=== PATIENT | male | born 1950 | race Hispanic/Latino ===

== ENCOUNTER → 2017-08-11 | Outpatient (CLI) | payer MEDICARE ==
[~2017-08-11] MED LIST: LISINOPRIL-HCT1 EAC4 PO; WARFARIN SODIUM2 MG PO; Z.0.CLINDAMYCIN HC30 PO; Z.0.FLOMAX0.4 MG PO; Z.0.LIPITOR20 MG PO; Z.0.PLAVIX75 MG PO
--- NOTE | 2017-08-11 09:26 | Diagnostic Imaging Report ---
PROCEDURE:ABDOMINAL ULTRASOUND COMPARISON:None. INDICATIONS:RLQ Pain Technique: Grayscale color Doppler ultrasound FINDINGS: Imaged segments of the inferior vena cava and abdominal aorta are normal. Normal pancreas. Right liver span 17 cm. Mildly increased echogenicity with a slightly nodular margin. Portal vein diameter 1.3 cm; normal flow direction. Cholecystectomy. Common bile duct diameter 0.7 cm. Right kidney: Span 10.6 cm. Anechoic 2.2 x 1.5 x 2 cm mid simple cyst, with an adjacent 9 mm cyst. Otherwise, normal Left kidney: Span 12 cm. Hypoechoic 8mm nodule at the mid segment too small to characterize. Spleen length 11.2 cm. CONCLUSION: 1. Hepatomegaly with increased echogenicity most commonly secondary to steatosis. 2. Portal vein prominence with a slightly nodular liver margin suggesting developing portal hypertension and cirrhosis. 3. Simple right renal cyst. Dictated by: Daren Aguilera M.D. on 08/11/2017 at 9:26 Electronically approved by: Daren gAuilera M.D. on 08/11/2017 at 9:26
--- NOTE | 2017-08-11 10:13 | Diagnostic Imaging Report ---
PROCEDURE:PELVIC ULTRASOUND COMPARISON:None. INDICATIONS:RLQ Pain TECHNIQUE: Paula scale color Doppler ultrasound pelvis with pre-and post void bladder volume. FINDINGS: The urinary bladder and pelvis are unremarkable. Bilateral ureteral jets consistent with patency. Bladder volume: 92 mL Post void bladder volume: 12 mL The prostate is inconspicuous. CONCLUSION: Unremarkable pelvic ultrasound. Dictated by: Daren Aguilera M.D. on 08/11/2017 at 10:13 Electronically approved by: Daren Aguilera M.D. on 08/11/2017 at 10:13
== END ==
LOC: US 07:53
PROVIDERS: ATTEND Family Medicine
DX: R10.31 Right lower quadrant pain (principal)
CPT/HCPCS: 76700; 76856

== ENCOUNTER → 2018-04-18 | Outpatient (CLI) | payer MEDICARE ==
--- NOTE | 2018-04-18 10:42 | Diagnostic Imaging Report ---
PROCEDURE:X-RAY LEFT KNEE, THREE OR MORE VIEWS COMPARISON:None. INDICATIONS:PAIN FINDINGS: The bones are demineralized. There are no fractures, subluxations, lytic or blastic lesions. Diffuse cartilage calcification is compatible with chondrocalcinosis. Mild medial compartment narrowing. There is no evidence of a joint effusion. There is also vascular calcification. CONCLUSION: Mild medial compartment narrowing with diffuse chondrocalcinosis. Yuniel Dickson D.O. Dictated by: Yuniel Dickson D.O. on 04/18/2018 at 10:52 Electronically approved by: Yuniel Dickson D.O. on 04/18/2018 at 10:52
--- NOTE | 2018-04-18 10:46 | Diagnostic Imaging Report ---
PROCEDURE:X-RAY RIGHT KNEE, THREE OR MORE VIEWS COMPARISON:None. INDICATIONS:PAIN FINDINGS:The bones are demineralized. No fracture, dislocation lytic or blastic process identified. Cartilage calcification compatible with chondrocalcinosis. Medial compartment narrowing is moderate. There is vascular calcification and clips above the popliteal fossa. CONCLUSION: Medial compartment narrowing with diffuse chondrocalcinosis. Yuniel Dickson D.O. Dictated by: Yuniel Dickson D.O. on 04/18/2018 at 10:55 Electronically approved by: Yuniel Dickson D.O. on 04/18/2018 at 10:55
== END ==
LOC: RAD 07:59
PROVIDERS: ATTEND Family Medicine
DX: M17.0 Bilateral primary osteoarthritis of knee (principal)

== ENCOUNTER → 2018-05-15 | Outpatient (CLI) | payer MEDICARE ==
--- NOTE | 2018-05-15 11:19 | Diagnostic Imaging Report ---
RIGHT HIP - 2 IMAGES HISTORY: Posterior right hip pain COMPARISON: None available. FINDINGS: Soft tissue attenuation partially limits sensitivity of the exam. Bones: Some of the osseous structures are partially obscured by stool and overlying bowel gas. No aggressive osseous lesion. Joints: Mild degenerative changes of the right hip and right sacroiliac joint. Soft tissues: Diffuse scattered atherosclerotic vascular calcifications. Metallic surgical clips project at the right inguinal region. IMPRESSION: 1. No acute radiographic abnormality. 2. Mild osteoarthrosis. Signed by: Dr. Logan Klein D.O., M.M.M. on 05/15/2018 11:15 AM
== END ==
LOC: RAD 09:47
PROVIDERS: ATTEND Family Medicine
DX: M13.0 Polyarthritis, unspecified (principal)

== ENCOUNTER → 2020-04-29 | Outpatient (CLI) | payer MEDICARE | LOC: CARD 09:13 | PROVIDERS: ATTEND Family Medicine | DX: I73.9 Peripheral vascular disease, unspecified (principal) | CPT/HCPCS: 93925 ==

== ENCOUNTER → 2020-08-22 | Outpatient (CLI) | payer MEDICARE ==
[~2020-08-22] MED LIST changes: +IOPAMIDOL 370 MG/ML 200 ML INFUS..BTL INJ ONE; +SODIUM CHLORIDE 0.9% 100 ML ONE; +SODIUM CHLORIDE 0.9% 50ML 0 ML ONE
[2020-08-22 10:05] LABS: BLOOD UREA NITROGEN 17 mg/dL (7-26); BUN/CREATININE RATIO 18 (6-25); CREATININE, SERUM 0.94 mg/dL (0.72-1.25); EST GLOMERULAR FILTRATION RATE > 60 ML/MIN (60-)
== END ==
LOC: CT 08:44
PROVIDERS: ATTEND Internal Medicine Interventional Cardiology
DX: I73.9 Peripheral vascular disease, unspecified (principal)
CPT/HCPCS: 36415; 75635; 82565; 84520; J7050; Q9967

== ENCOUNTER 2025-02-20 12:45 | Emergency (ER) | payer MEDICARE ==
[~2025-02-20] VITALS: Ht 170.2 cm; Wt 102.1 kg
[~2025-02-20 12:45] MED LIST changes: -IOPAMIDOL 370 MG/ML 200 ML INFUS..BTL INJ ONE; -SODIUM CHLORIDE 0.9% 100 ML ONE; -SODIUM CHLORIDE 0.9% 50ML 0 ML ONE
[2025-02-20 13:21] VITALS: TEMP 98.4
[2025-02-20 14:21] LABS: INR 1.33
[2025-02-20] MEDS ORDERED: DOXYCYCLINE HY100 MG PO (15:03)
[2025-02-20 15:15] VITALS: PULSE 60; RESP 20
[2025-02-20 16:07] VITALS: BP 129/71; PULSE 60; O2SAT 97
== END 2025-02-20 15:15 | disposition home or self-care (01) ==
LOC: ER 13:48
DX: L02.212 Cutaneous abscess of back [any part, except buttock and flank] (principal); I48.91 Unspecified atrial fibrillation; I10 Essential (primary) hypertension; E78.5 Hyperlipidemia, unspecified; K21.9 Gastro-esophageal reflux disease without esophagitis; Z87.19 Personal history of other diseases of the digestive system
CPT/HCPCS: 36415; 85610; 99283